=== PATIENT | male | born 1990 | race Caucasian/White ===

== ENCOUNTER 2017-10-13 14:28 | Emergency (ER) | payer SELFPAY | END 2017-10-13 14:59 | disposition home or self-care (01) | LOC: EDBD 14:28 → MADERS 14:28 | DX: T65.221A Toxic effect of tobacco cigarettes, accidental (unintentional), initial encounter (principal); F41.9 Anxiety disorder, unspecified; F10.239 Alcohol dependence with withdrawal, unspecified; F17.210 Nicotine dependence, cigarettes, uncomplicated | CPT/HCPCS: 99284 ==